=== PATIENT | female | born 1940 | race Caucasian/White ===

== ENCOUNTER 2020-12-04 17:15 | Emergency (ER) | payer MEDICARE, OTHER, SELFPAY ==
--- NOTE | ~2020-12-04 | CT_ITS ---
EXAMINATION: CT HEAD WITHOUT CONTRAST CT FACIAL BONES WITHOUT CONTRAST CT CERVICAL SPINE WITHOUT CONTRAST CLINICAL INFORMATION: Fall COMPARISON: None. TECHNIQUE: Multidetector CT imaging of the head, face and cervical spine was performed without the use of intravenous contrast. Multiplanar reformats are reviewed. This CT examination was performed using dose optimization techniques as appropriate, variously including the following: *Automated exposure control *Adjustment of mA and/or kV according to patient size (this includes techniques or standardized protocols for targeted exams where dose is matched to indication/reason for exam; i.e. extremities or head) *Use of iterative reconstruction technique DLP: 1221 mGy-cm. FINDINGS: There is no evidence of acute intracranial hemorrhage or territorial infarction. No abnormal mass-effect or midline shift is seen. Madden to white matter differentiation is well preserved. Mild patchy subcortical and periventricular white matter low-attenuation changes statistically related to microangiopathic gliosis.. No extra-axial fluid collections are identified. The ventricles are normal in size. There is no abnormal attenuation within the brain parenchyma. There is soft tissue swelling along the right lateral orbital rim and along the right zygomatic process. Orbits and globes unremarkable. No facial bone fractures. Paranasal sinuses are clear. Mild leftward deviation of the osseous nasal septum. Mastoid air cells are clear. Mandible and temporomandibular joints unremarkable. Calvarium and skull base intact. Atlantooccipital alignment is maintained. There is cervical kyphosis related to hypertrophic facet arthropathy which is most pronounced from C2 to C5, particularly on the right. There is slight anterolisthesis of C4 on C5 of approximately 3 mm. Mild levoconvex cervical curvature.. No acute fracture or subluxation. Vertebral body heights are maintained. Carotid bulb calcifications are present. The paraspinal soft tissues are otherwise unremarkable. The imaged lung apices are clear CT/CT cervical spine wo con IMPRESSION: No acute intracranial pathology. Mild chronic white matter small vessel ischemic changes. No facial bone fracture. No cervical spine fracture or subluxation. Spondylitic changes as described.
[2020-12-04 17:24] VITALS: BP 194/95; PULSE 68; RESP 16; TEMP 36.7; O2SAT 99
--- NOTE | 2020-12-04 18:33 | ED_ITS ---
HPI - Fall General Chief Complaint: Fall Stated Complaint: FALL Time Seen by Provider: 12/04/20 17:55 Source: patient Mode of arrival: ambulatory Limitations: no limitations History of Present Illness HPI Narrative: 80-year-old female with a past medical history of hypertension presenting to the ED with complaints of a mechanical fall at approximately 11:30 this morning when she was doing gardening work she tripped on her water hose got caught on her foot and she fell down hitting the cement patio with her right forehead/right upper eyelid and since then has been having pain to that area/bruising and she sustained a laceration. She reports she is up-to-date on her tetanus. Denies any symptoms prior to the fall. Denies any other symptoms at this time including dizziness, lightheadedness, changes in vision, headaches, nausea/vomiting, chest pain, shortness of breath, palpitations, cough, dyspnea on exertion, or orthopnea, any symptoms or any other symptoms complaints or concerns at this time. - patient is hypertensive at 194/95 although denies any cardiac related complaints. Reports that is related to being here in the emergency department she hates coming to the hospitals. Will re-evaluate before discharge. MD complaint: fall Onset (ago): hour(s) Fall from: standing Fall witnessed: no Place fall occurred: home (While outside) Loss of consciousness: none Prolonged down time: no Symptoms prior to fall: none Context: tripped/slipped Location of injury: head and face Severity: moderate Quality: aching Associated symptoms (after fall): denies Related Data Previous Rx's Medication Instructions Recorded tramadol 50 mg PO BID PRN #14 tab 12/04/20 Allergies Allergy/AdvReac Type Severity Reaction Status Date / Time acetaminophen [From PERCOCET] Allergy Unknown NAUSEA Verified 12/04/20 17:32 VOMITING aspirin [From PERCODAN] Allergy Unknown NAUSEA Verified 12/04/20 17:32 VOMITING oxycodone [From PERCODAN] Allergy Unknown NAUSEA Verified 12/04/20 17:32 VOMITING Review of Systems Review of Systems: Constitutional : No changes in activity, No lethargy, No recent prior head injury, No agitation, No increased fussiness ENT/Mouth : No Ear Pain, No Nasal discharge/drainage Eyes: No Eye Pain, No Swelling, No Redness, No Foreign Body, No Vision Changes Cardiovascular : No Chest Pain, No SOB Respiratory : No Cough Gastrointestinal : No Nausea, No Vomiting, No abdominal Pain Genitourinary : No Dysuria, No Urinary Frequency, No Urinary Incontinence, No Urgency, No Flank Pain Musculoskeletal : + Right upper eyelid pain/swelling/bruising, No joint pain, No neck pain/stiffness, No back pain/injury Skin : No lacerations Neuro : No unsteady gait, No Paresthesias, No Loss of Consciousness, No altered mental status, No Headache Yes all other systems are reviewed and are negative [facility] Past Medical History Attestation statement: The following information was validated with the patient. Medical History HTN (hypertension) Social History Social History Alcohol intake: current Alcohol intake frequency: a few times a month Alcohol type: beer and wine Smoked in Last 30 Days: No Use of substances other than those prescribed or required for medical reasons: No Advance Directives: Yes Advance Directives Information Provided: No Advance Directives on File: No Physical Exam Vital Signs: Vital Signs: Last Vital Signs Temp 98.1 F 12/04/20 17:24 Pulse 63 12/04/20 19:28 Resp 16 12/04/20 19:28 BP 184/98 H 12/04/20 19:28 Pulse Ox 99 12/04/20 19:28 Body Mass Index 30.0 Vital signs have been reviewed as normal and appeared to be correct. Blood pressure hypertensive at 194/95. Heart rate normal. Respiration rate normal. Temperature normal. Oxygen saturation normal. Appearance: Alert. Oriented X3. No acute distress. Head: Right upper eyebrow with moderate ecchymosis and soft tissue swelling noted with a superficial 1 cm laceration noted. No foreign bodies noted. Mild bony tenderness noted. No obvious deformities noted. Otherwise the rest of the external exam of the head is normal. Able to rotate head bilaterally. Eyes: PERRLA. EOMI. No nystagmus noted. Conjunctiva and sclera normal. Eyelids normal. Corneal reflex normal. ENT: EAC normal. TM's Normal. No septal hematoma noted. No hemotympanum noted. Hearing normal. Pharynx normal. Uvula midline. tongue midline. Moist mucous membranes. No trismus noted. No drooling noted. No muffled voice noted. No nystagmus noted. Neck: Normal inspection. Neck supple. FROM. No adenopathy. Trachea midline. Thyroid Normal. No meningeal signs. No neck mass noted. No mid cervical or paracervical muscular tenderness noted. No rashes/lesion/induration/ fluctuance/ecchymosis/abrasion/lacerations or signs of infection noted. CVS: Normal heart rate and rhythm. Heart sound normal. No murmurs noted. Pulses normal throughout. Respiratory: No respiratory distress. Painless inspiration. Breath sounds normal. No wheezes/rales/rhonchi noted. Chest nontender. No accessory muscle usage noted or decreased air movement noted. Back: Full range of motion noted. Skin: Skin warm and dry. Normal skin color. Normal skin turgor. No rashes/lesions noted. Extremities: No lower extremity edema. Extremities exhibit normal range of motion. Extremities nontender. Able to shrug shoulders bilaterally and keep up against resistance. Neuro: Oriented X 3. No motor deficit. No sensory deficit. Reflexes normal. Moving all extremities. No focal motor deficits. Cranial nerves II-XI intact bilaterally. Facial strength normal. Normal cognition. Speech normal. Gait normal. Strength 5/5 throughout. No pronator drift. No tremor noted. No fasciculations noted. No rigidity noted. Muscle tone normal throughout. No asterixis noted. Course Course Course Narrative: 18:01pm - 80-year-old female with a past medical history of hypertension presenting to the ED with complaints of a mechanical fall at approximately 11:30 this morning when she was doing gardening work she tripped on her water hose got caught on her foot and she fell down hitting the cement patio with her right forehead/right upper eyelid and since then has been having pain to that area/bruising and she sustained a laceration. - on exam patient is alert and oriented x3. Not in any acute distress. Hypertensive at 194/95 all other vitals are within normal limits. No focal neuro deficits noted. Patient with soft tissue swelling/ecchymosis and a superficial 1 cm laceration to right upper eyebrow no obvious deformities noted. Neck is nontender and patient has full range of motion. No other signs of trauma noted. - will obtain a CT scan of brain/facial bones and CT scan of cervical spine then re-evaluate. Patient declined any pain medications at this time. Reevaluation(s) Reevaluation #1: - CT scan of brain/cervical/facial bones within normal limits revealed chronic changes no acute processes. Patient is now status post laceration repair with Dermabond. Patient tolerated procedure well. She is up-to-date on tetanus. No further imaging or labs indicated at this time blood pressure mildly increased at this time. Will DC home with symptomatic treatment instructions return if any new or worsening symptoms to follow up with primary care provider. Patient understands agrees with this plan. Time: 20:11 [facility] - Fall Medical Records Attestation: I reviewed the patient's medical records. Lab Data Attestation: I reviewed the patient's lab results. Imaging Data CT scan of brain/facial bones/cervical spine: Attestation: I personally reviewed and interpreted this imaging study as follows: Radiologist's impression: FINDINGS: There is no evidence of acute intracranial hemorrhage or territorial infarction. No abnormal mass-effect or midline shift is seen. Madden to white matter differentiation is well preserved. Mild patchy subcortical and periventricular white matter low-attenuation changes statistically related to microangiopathic gliosis.. No extra-axial fluid collections are identified. The ventricles are normal in size. There is no abnormal attenuation within the brain parenchyma. There is soft tissue swelling along the right lateral orbital rim and along the right zygomatic process. Orbits and globes unremarkable. No facial bone fractures. Paranasal sinuses are clear. Mild leftward deviation of the osseous nasal septum. Mastoid air cells are clear. Mandible and temporomandibular joints unremarkable. Calvarium and skull base intact. Atlantooccipital alignment is maintained. There is cervical kyphosis related to hypertrophic facet arthropathy which is most pronounced from C2 to C5, particularly on the right. There is slight anterolisthesis of C4 on C5 of approximately 3 mm. Mild levoconvex cervical curvature.. No acute fracture or subluxation. Vertebral body heights are maintained. Carotid bulb calcifications are present. The paraspinal soft tissues are otherwise unremarkable. The imaged lung apices are clear CT/CT cervical spine wo con IMPRESSION: No acute intracranial pathology. Mild chronic white matter small vessel ischemic changes. No facial bone fracture. No cervical spine fracture or subluxation. Spondylitic changes as described. Discharge Plan Discharge Clinical Impression: Fall, Laceration Patient Disposition: Home, Self-Care Instructions: Facial Laceration (ED) Prescriptions: New tramadol 50 mg tablet 50 mg PO BID PRN (Reason: pain) Qty: 14 RF: 0 Referrals: Shyla Fleming NP [Primary Care Provider] - 2 days Print Language: Greenlandic
[2020-12-04 19:28] VITALS: BP 184/98; PULSE 63; RESP 16; O2SAT 99
== END 2020-12-04 20:26 | disposition home or self-care (01) ==
PROVIDERS: Emergency Provider Internal Medicine; PCP Nurse Practitioner Family
DX: S01.81XA Laceration without foreign body of other part of head, initial encounter (principal); G44.309 Post-traumatic headache, unspecified, not intractable; M54.2 Cervicalgia; W01.10XA Fall on same level from slipping, tripping and stumbling with subsequent striking against unspecified object, initial encounter; Y93.H2 Activity, gardening and landscaping; Y92.007 Garden or yard of unspecified non-institutional (private) residence as the place of occurrence of the external cause; Y99.8 Other external cause status; Z79.899 Other long term (current) drug therapy
CPT/HCPCS: 70450; 70486; 72125; 99285

== ENCOUNTER 2021-05-17 09:41 | Outpatient (REF) | payer MEDICARE, OTHER, SELFPAY ==
--- NOTE | ~2021-05-17 | MM_ITS ---
EXAMINATION: MM SCREENING DIGITAL BREAST TOMOSYNTHESIS, BILATERAL CLINICAL INFORMATION: Screening. Asymptomatic. The lifetime risk of breast cancer based on the Tyrer-Cuzick Model is 2%. COMPARISON: Mammography: 05/11/2020, 01/20/2019, 12/17/2017 TECHNIQUE: Digital breast tomosynthesis is performed in both the craniocaudal and mediolateral oblique views along with computer-aided detection (CAD). Synthesized 2D images are generated from the tomosynthesis. FINDINGS: There are scattered areas of fibroglandular density (ACR BI-RADS breast composition Category b). There are no significant masses, abnormal calcifications, or other abnormalities. Parenchymal pattern is similar to prior studies. No developing density. The axilla and skin contours are unremarkable. MM/MM tomosynthesis screening BI IMPRESSION: No mammographic evidence of malignancy. ASSESSMENT: BI-RADS 2: Benign RECOMMENDATION: Routine annual mammography screening. This patient's information was entered into a reminder system with a target due date for their next mammogram.
== END 2021-05-17 09:42 | disposition home or self-care (01) ==
LOC: HO.MAMMO 09:41
PROVIDERS: PCP Nurse Practitioner Family; Visit Provider Nurse Practitioner Family
DX: Z12.31 Encounter for screening mammogram for malignant neoplasm of breast (principal)
CPT/HCPCS: 77063; 77067

== ENCOUNTER 2021-05-26 08:53 | Outpatient (REF) | payer MEDICARE, OTHER, SELFPAY ==
--- NOTE | ~2021-05-26 | MM_ITS ---
EXAMINATION: BONE DENSITOMETRY CLINICAL INDICATION: Screening for osteoporosis. COMPARISON: Previous BD dated 06/22/2011 and baseline BD dated 10/06/2005. TECHNIQUE: Using a App[employer]ense DXA System (software version: 13.1) manufactured by [employer], dual-energy x-ray absorptiometry was performed of the lumbar spine and left hip. The images are of good technical quality. Summary results are attached. FINDINGS: AP SPINE L1-L4 (excluding L2): The data of L1-L4 has been changed to exclude the L2 vertebral body, because degenerative changes at this level may cause overestimation of lumbar spine density. Current: BMD 1.415 g/cm2, Z-score 3.5, T-score 2.0, normal, 3.4% increase from previous, 24.0% increase from baseline (<5% change is not significant). Prior: BMD 1.368 g/cm2. Baseline: BMD 1.141 g/cm2. LEFT FEMUR, NECK: Current: BMD 0.958 g/cm2, Z-score 1.3, T-score -0.6, normal. Prior: BMD 0.964 g/cm2. Baseline: BMD 0.949 g/cm2. LEFT FEMUR, TOTAL: Current: BMD 0.945 g/cm2, Z-score 1.2, T-score -0.5, normal, 0.4% decrease from previous, 2.6% increase from baseline (<5% change is not significant). Prior: BMD 0.949 g/cm2. Baseline: BMD 0.921 g/cm2. IDENTIFIED RISK FACTORS: Height loss, menopause. HISTORY OF FRACTURE: None listed. MEDICATIONS: Calcium supplements or multivitamin, vitamin D. MM/XR DEXA axial skeleton IMPRESSION: 1. DIAGNOSIS: Normal bone density based on the lowest T-score value of -0.6 in the femoral neck applying World Health Organization criteria. 2. 10-YEAR FRACTURE RISK PREDICTION, FRAX: Major osteoporotic fracture (clinical spine, forearm, hip or shoulder) 9.6%. Hip fracture 1.4%. 3. Treatment Recommendations: NOF guidelines recommend consideration for treatment in postmenopausal women and men age 50 and older presenting with the following: -A hip or vertebral (clinical or morphometric) fracture. -T-score less than or equal to -2.5 at the femoral neck or spine after appropriate evaluation to exclude secondary causes. -Low bone mass at the hip or spine and a 10-year fracture probability by FRAX of greater than or equal to 3% for hip fracture or greater than or equal to 20% for major osteoporotic fracture based on the [place] adapted WHO algorithm. 4. Other Recommendations: All treatment decisions require clinical judgment and consideration of individual patient factors, including patient preferences, comorbidities, previous drug use, risk factors not captured in the FRAX model (e.g. frailty, falls, vitamin D deficiency, increased bone turnover, interval significant decline in bone density) and possible under or overestimation of fracture risk by FRAX. FUTURE SCAN RECOMMENDATION: People with diagnosed cases of osteoporosis or at high risk for fracture should have regular bone mineral density tests. For patients eligible for Medicare, routine testing is allowed once every 2 years. The testing frequency can be increased to one year for patients who have rapidly progressing disease, those who are receiving or discontinuing medical therapy to restore bone mass, or have additional risk factors.
== END 2021-05-26 08:54 | disposition home or self-care (01) ==
LOC: HO.MAMMO 08:53
PROVIDERS: Visit Provider Nurse Practitioner Family
DX: Z13.820 Encounter for screening for osteoporosis (principal); M85.80 Other specified disorders of bone density and structure, unspecified site; Z78.0 Asymptomatic menopausal state; Z79.899 Other long term (current) drug therapy
CPT/HCPCS: 77080

== ENCOUNTER 2022-06-13 08:34 | Outpatient (REF) | payer MEDICARE, OTHER, SELFPAY ==
--- NOTE | ~2022-06-13 | MM_ITS ---
EXAMINATION: MM SCREENING DIGITAL BREAST TOMOSYNTHESIS, BILATERAL CLINICAL INFORMATION: Screening. Asymptomatic. The lifetime risk of breast cancer based on the Tyrer-Cuzick Model is 2%. COMPARISON: Mammography: 05/17/2021, 05/11/2020, 01/20/2019 TECHNIQUE: Digital breast tomosynthesis is performed in both the craniocaudal and mediolateral oblique views along with computer-aided detection (CAD). Synthesized 2D images are generated from the tomosynthesis. Additional right CC view is provided. FINDINGS: There are scattered areas of fibroglandular density (ACR BI-RADS breast composition Category b). Parenchymal pattern is similar to prior exams. There is fibronodular parenchymal pattern without significant mass or architectural abnormality or developing density. No abnormal calcifications. The axilla and skin contours are unremarkable. No significant changes. MM/MM tomosynthesis screening BI IMPRESSION: No mammographic evidence of malignancy. ASSESSMENT: BI-RADS 2: Benign RECOMMENDATION: Routine annual mammography screening. This patient's information was entered into a reminder system with a target due date for their next mammogram.
== END 2022-06-13 08:35 | disposition home or self-care (01) ==
LOC: HO.MAMMO 08:34
PROVIDERS: Visit Provider Nurse Practitioner Family
DX: Z12.31 Encounter for screening mammogram for malignant neoplasm of breast (principal)
CPT/HCPCS: 77063; 77067

== ENCOUNTER 2023-06-20 08:00 | Outpatient (REF) | payer MEDICARE, OTHER, SELFPAY | END 2023-06-20 08:01 | disposition home or self-care (01) | LOC: HO.MAMMO 08:00 | PROVIDERS: PCP Nurse Practitioner Family; Visit Provider Nurse Practitioner Family | DX: Z12.31 Encounter for screening mammogram for malignant neoplasm of breast (principal) | CPT/HCPCS: 77063; 77067 ==

== ENCOUNTER → 2023-06-20 08:15 | Outpatient (BNV) | payer MEDICARE, OTHER, SELFPAY | PROVIDERS: PCP Nurse Practitioner Family; Visit Provider Radiology Diagnostic Radiology | DX: Z12.31 Encounter for screening mammogram for malignant neoplasm of breast (principal) | CPT/HCPCS: 77063; 77067 ==

== ENCOUNTER 2023-12-27 12:47 | Outpatient (REF) | payer MEDICARE, OTHER, SELFPAY ==
[2023-12-27 14:36] LABS: Alanine Aminotransferase 19 U/L (0-31); Albumin Level 3.9 g/dL (3.5-5.0); Alkaline Phosphatase 89 U/L (39-117); Anion Gap 11 (12-20); Aspartate Amino Transferase 20 U/L (5-31); Bilirubin Total 0.5 mg/dL (0.0-1.0); Blood Urea Nitrogen 26 mg/dL (9-16); Calcium 9.3 mg/dL (8.4-10.2); Carbon Dioxide 28 mmol/L (22-29); Chloride 104 mmol/L (96-108); Estimated Glomerular Filt Rate > 60; Glucose Random 90 mg/dL (60-115); Potassium 3.6 mmol/L (3.3-5.1); Sodium 139 mmol/L (135-145); Total Protein 7.2 g/dL (6.5-8.0)
== END 2023-12-27 12:48 | disposition home or self-care (01) ==
LOC: HO.LAB 12:47
PROVIDERS: PCP Registered Nurse; Visit Provider Registered Nurse
DX: I10 Essential (primary) hypertension (principal)
CPT/HCPCS: 36415; 80053

== ENCOUNTER 2024-01-21 11:40 | Day surgery (SDC) | payer MEDICARE, OTHER, SELFPAY ==
[2024-01-17 12:04] VITALS: BMI 31.4
--- NOTE | 2024-01-17 14:55 | HO.ANESPROP2 ---
Documented by User: Phylicia Begum NP 01/17/24 14:56 HPI - Anesthesia Eval Consult details Narrative: 83yo F for Right Levator Resect/Recess PMFSH Active Problems Active Problems: All Active Problems HTN (hypertension) (Acute) Past Medical History Medical History (Updated 01/17/24 @ 11:58 by Maira Barney RN) Osteoarthritis Osteopenia Anxiety HTN (hypertension) Social History Social History Alcohol intake: current Alcohol intake frequency: a few times a month Alcohol type: beer and wine Are you DNR?: No Advance Directives: No Advance Directives Information Provided: Yes Advance Directives on File: No Patient : No : No Meds Allergies Allergy/AdvReac Type Severity Reaction Status Date / Time acetaminophen [From PERCOCET] Allergy Unknown NAUSEA Verified 12/04/20 17:32 VOMITING aspirin [From PERCODAN] Allergy Unknown NAUSEA Verified 12/04/20 17:32 VOMITING oxycodone [From PERCODAN] Allergy Unknown NAUSEA Verified 12/04/20 17:32 VOMITING Home Medications ?Medication ?Instructions ?Recorded ?Confirmed ?Last Taken ?Type albuterol sulfate 90 mcg/actuation 2 puff inhalation Q6H PRN 01/17/24 01/17/24 Unknown History aerosol inhaler Shortness Of Breath Or Wheezing calcium carbonate 500 mg-vitamin 1 tab PO DAILY 01/17/24 01/17/24 Unknown History D3 10 mcg (400 unit) tablet clotrimazole-betamethasone 1 1 appl topical BID 01/17/24 01/17/24 Unknown History %-0.05 % topical cream escitalopram oxalate 10 mg tablet 10 mg PO DAILY 01/17/24 01/17/24 Unknown History oxvbeatqube-icbsbgzti-uzr C-Mn 500 2 cap PO DAILY 01/17/24 01/17/24 Unknown History mg-400 mg capsule (Glucosamine Chondroitin Maximum Strength) hydrochlorothiazide 25 mg tablet 12.5 mg PO DAILY 01/17/24 01/17/24 Unknown History losartan 25 mg tablet 25 mg PO DAILY 01/17/24 01/17/24 Unknown History turmeric root extract 500 mg 1,000 mg PO BID 01/17/24 01/17/24 Unknown History capsule Exam Height,Weight and Vital Signs: Height 5 ft 1 in Weight 75.296 kg Assessment and Plan Assessment Anesthesia Assessment: Chart Reviewed Documented by User: Rohit Bhardwaj MD 01/21/24 14:41 PMFSH Past Medical History Medical History (Updated 01/17/24 @ 11:58 by Maira Barney RN) Osteoarthritis Osteopenia Anxiety HTN (hypertension) Family History Family history of problems with anesthesia: No Surgical History History of Problems with Anesthesia: No Social History Social History Alcohol intake: current Alcohol intake frequency: a few times a month Alcohol type: beer and wine Are you DNR?: No Advance Directives: No Advance Directives Information Provided: Yes Advance Directives on File: No Patient : No : No Meds Allergies Allergy/AdvReac Type Severity Reaction Status Date / Time acetaminophen [From PERCOCET] Allergy Unknown NAUSEA Verified 12/04/20 17:32 VOMITING aspirin [From PERCODAN] Allergy Unknown NAUSEA Verified 12/04/20 17:32 VOMITING oxycodone [From PERCODAN] Allergy Unknown NAUSEA Verified 12/04/20 17:32 VOMITING Home Medications ?Medication ?Instructions ?Recorded ?Confirmed ?Last Taken ?Type albuterol sulfate 90 mcg/actuation 2 puff inhalation Q6H PRN 01/17/24 01/17/24 Unknown History aerosol inhaler Shortness Of Breath Or Wheezing calcium carbonate 500 mg-vitamin 1 tab PO DAILY 01/17/24 01/17/24 Unknown History D3 10 mcg (400 unit) tablet clotrimazole-betamethasone 1 1 appl topical BID 01/17/24 01/17/24 Unknown History %-0.05 % topical cream escitalopram oxalate 10 mg tablet 10 mg PO DAILY 01/17/24 01/17/24 Unknown History lzicuegbffn-gtylbtjfz-keo C-Mn 500 2 cap PO DAILY 01/17/24 01/17/24 Unknown History mg-400 mg capsule (Glucosamine Chondroitin Maximum Strength) hydrochlorothiazide 25 mg tablet 12.5 mg PO DAILY 01/17/24 01/17/24 Unknown History losartan 25 mg tablet 25 mg PO DAILY 01/17/24 01/17/24 Unknown History turmeric root extract 500 mg 1,000 mg PO BID 01/17/24 01/17/24 Unknown History capsule Exam Airway Mallampati Class: III TM Dist: <=3cm Neck ROM: Full Loose/Missing/Broken Teeth: Yes Heart: rrr Lungs: cta Assessment and Plan Assessment Anesthesia Assessment: Anesthesia Plan Discussed Final Anesthetic Review Family History of Problems with Anesthesia: No History of Problems with Anesthesia: No NPO: Yes ASA Class: III Final Preanesthetic Review: No Changes in Pt Med Stat, Meds/Allgs Chart Reviewed, Consent Obtained/Reviewed and Anes Risks/Benef Reviewed Patient Risk: Intermediate Procedure Risk: Low Anesthetic Plan Anesthetic Plan: MAC: Disposition: Standard PACU
[2024-01-21 14:21] VITALS: BP 151/85; PULSE 71; RESP 18; TEMP 36.1; O2SAT 97
--- NOTE | 2024-01-21 15:38 | MHC.SHP ---
Pre-Procedural Eval Section A - 24 Hr Update-Section A only Date of Service: 01/21/24 The patient is an INPATIENT: No Changes since office visit: No Cold of Flu in the past 2 weeks, No New Medical Problems, No Changes in Medication and No Patient answered all questions The patient has been examined within 24 hours of the surgical procedure. The History & Physical has been completed within 30 days and I have reviewed it.: Yes Section B - Complete if H&P > 30 days Chief Complaint: Unspecified ptosis of right eyelid Allergies: Allergies Allergy/AdvReac Type Severity Reaction Status Date / Time acetaminophen [From PERCOCET] Allergy Unknown NAUSEA Verified 12/04/20 17:32 VOMITING aspirin [From PERCODAN] Allergy Unknown NAUSEA Verified 12/04/20 17:32 VOMITING oxycodone [From PERCODAN] Allergy Unknown NAUSEA Verified 12/04/20 17:32 VOMITING Plan Diagnosis/Plan: Unchanged I have reviewed the history and physical and performed a pertinent physical examination on my patient. No changes have occurred unless specified. Time Spent With Patient Time: Total time managing care of this patient today ____ minutes.
[2024-01-21] MEDS: Scopolamine 1.5 MG PATCH.TD.3 TRANSDERMA (15:52)
[2024-01-21 16:36] VITALS: BP 158/79; PULSE 65; RESP 12; TEMP 36.6; O2SAT 98
[2024-01-21 16:51] VITALS: BP 162/74; PULSE 64; RESP 20; TEMP 36.5; O2SAT 98
--- NOTE | 2024-03-24 15:26 | OP_ITS ---
DATE OF SERVICE: 01/21/2024 SURGEON: Castillo Macdonald MD PREOPERATIVE DIAGNOSIS: Patient was seen for right upper lid ptosis. POSTOPERATIVE DIAGNOSIS: Patient was seen for right upper lid ptosis. PROCEDURE PERFORMED: Levator resection. ESTIMATED BLOOD LOSS: COMPLICATIONS: ANESTHESIA: MAC. ASSISTANTS: SPECIMENS: DESCRIPTION OF PROCEDURE: After obtaining informed consent, the patient was brought to the operating suite and placed in the supine position. After being prepped and draped in usual sterile fashion, attention was directed to the right upper lid crease where injection of lidocaine was placed. This was followed by creation of a skin incision with a length equal to the diameter of the cornea. The wound was opened, a combination of sharp and blunt dissection inferiorly to the tarsus where a double-armed [place]-R[place]ard suture was placed partial thickness through the tarsal bed coming out at the superior margin of the tarsus. Mark scissors was then utilized with sharp and blunt dissection creating a pocket along the superior incision. The [place]ard double-armed was then passed through the levator was sutured in place. The height of the lid was checked, and once found adequate, it was sutured in place. The skin was then closed with 6-0 fast absorbing and erythromycin was placed on the wound. The patient tolerated the procedure well and will be seen in followup. MD REBEKA Ames/MODL / [id number] MTDD
== END 2024-01-21 16:52 | disposition home or self-care (01) ==
PROVIDERS: PCP Registered Nurse; Visit Provider Ophthalmology
PROC: (CPT 67911; principal; 2024-01-21 13:50)
DX: H02.401 Unspecified ptosis of right eyelid (principal); I10 Essential (primary) hypertension; F41.9 Anxiety disorder, unspecified; Z79.899 Other long term (current) drug therapy; Z88.5 Allergy status to narcotic agent; Z88.8 Allergy status to other drugs, medicaments and biological substances
CPT/HCPCS: 67911; J2250; J2405; J3010

== ENCOUNTER 2024-06-25 08:02 | Outpatient (REF) | payer MEDICARE, OTHER, SELFPAY ==
--- NOTE | ~2024-06-25 | MM_ITS ---
EXAMINATION: MM SCREENING DIGITAL BREAST TOMOSYNTHESIS, BILATERAL CLINICAL INFORMATION: Screening. Asymptomatic. COMPARISON: Mammography: Comparison is made with available priors TECHNIQUE: Digital breast mammography with tomosynthesis is performed in both the craniocaudal and mediolateral oblique views along with computer-aided detection (CAD). FINDINGS: There are scattered areas of fibroglandular density (ACR BI-RADS breast composition Category b). There are no significant masses, abnormal calcifications, or other abnormalities. MM/MM tomosynthesis screening BI IMPRESSION: No mammographic evidence of malignancy. ASSESSMENT: BI-RADS BI-RADS 1 - Negative RECOMMENDATION: Routine annual mammography screening. 1 year F/U This examination should not preclude the clinical evaluation of a suspicious palpable abnormality. This patient's information was entered into a reminder system with a target due date for their next mammogram. Electronically signed by: Earlene Perez DO 07/07/2024 05:57 PM EDT
== END 2024-06-25 08:03 | disposition home or self-care (01) ==
LOC: HO.MAMMO 08:02
PROVIDERS: PCP Registered Nurse; Visit Provider Registered Nurse
DX: Z12.31 Encounter for screening mammogram for malignant neoplasm of breast (principal)
CPT/HCPCS: 77063; 77067

== ENCOUNTER → 2024-06-25 08:15 | Outpatient (BNV) | payer MEDICARE, OTHER, SELFPAY | PROVIDERS: PCP Registered Nurse; Visit Provider Internal Medicine | DX: Z12.31 Encounter for screening mammogram for malignant neoplasm of breast (principal) | CPT/HCPCS: 77063; 77067 ==

== ENCOUNTER 2024-07-07 08:04 | Outpatient (REF) | payer MEDICARE, OTHER, SELFPAY ==
[2024-07-07 09:25] LABS: Cholesterol 238 mg/dL (<200); HDL Cholesterol 93 mg/dL (>40); LDL Cholesterol Calculated 135 mg/dL (<100); Triglycerides 50 mg/dL (<150)
== END 2024-07-07 08:05 | disposition home or self-care (01) ==
LOC: HO.LAB 08:04
PROVIDERS: PCP Registered Nurse; Visit Provider Registered Nurse
DX: I10 Essential (primary) hypertension (principal)
CPT/HCPCS: 36415; 80061

== ENCOUNTER 2025-03-13 09:46 | Outpatient (REF) | payer MEDICARE, OTHER, SELFPAY ==
--- NOTE | ~2025-03-13 | MM_ITS ---
EXAMINATION: DXA BONE DENSITY AXIAL HISTORY: Osteopenia of lumbar spine TECHNIQUE: Corvalius Dual energy absorptiometry (DEXA) of the lumbar spine, total left hip, and femoral neck was performed. COMPARISON: Comparison is made with the prior examination dated 05/26/2021. FINDINGS: The bone mineral density of the lumbar spine is 1.429, corresponding to a T-score of 2.2, and a Z-score of 3.7. This is indicative of normal bone mineral density. This represents a BMD change of 1.0% compared to the prior exam. This is not statistically significant. The bone mineral density of the left total hip is 0.937, corresponding to a T-score of -0.6, and a Z-score of 1.3. This is indicative of normal bone mineral density. This represents a BMD change of -0.8% compared to the prior exam. This is not statistically significant. The bone mineral density of the left femoral neck is 0.969, corresponding to a T-score of -0.5, and a Z-score of 1.6. This is indicative of normal bone mineral density. This represents a BMD change of 1.1% compared to the prior exam. FRACTURE RISK: The FRAX index suggests a ten year probability of major osteoporotic fracture of 9.6%, and of hip fracture 1.7%. MM/XR DEXA axial skeleton IMPRESSION: Based on bone mineral density, and according to World Health Organization (WHO) criteria, the diagnosis is consistent with normal bone mineral density. All bone density values are in grams per centimeter squared (g/cm2). Statistically, 68% of repeat scans fall within 1 SD (+/- 0.010 g/cm2 for AP spine L1-L4) and 1 SD (+/- 0.012 g/cm2 for femur total) FRAX is a trademark of the [employer] [place] for Metabolic Bone Disease, a World Health Organization (WHO) Collaborating Center. Electronically signed by: Bg Limon MD 03/13/2025 10:29 AM EDT
--- OUTSIDE RECORDS SUMMARY | 2025-03-13 10:17 | XMS_ITS | Patient Health Record ---
[facility] [address] [place] [address] Care Team Providers Care Manager Nuclear Name Role Phone Bernadette BLANDON, Shyla Primary Care Provider Bg Santos [phone] Allergies Allergen (clinical drug ingredient) Drug/Non Drug Allergy documented on EMR Reaction Allergy Type Onset Date Status Percodan Unknown Drug Allergy Active acetaminophen / oxycodone Percocet Unknown Drug Allergy Active Reason For Referral No Information Medications Medication SIG (Take, Route, Frequency, Duration) Notes Start Date End Date Status hydroCHLOROthiazide Active Sertraline HCl Activ e Glucosamine Active Multivitamin Active Calcium Active Aspir-81 Active Colyte with Flavor Packs 227 .1 GM As directed Orally As directed for 1 dose 06/18/2013 Active Problems Problem Type SNOMED Code ICD Code Onset Dates Problem Status W/U Status Risk Notes Problem Already on aspirin (610502517) Long-term (current) use of aspirin (V58.66) Active confirmed Problem Colon cancer screening (V76.51) Active confirmed Plan Of Treatment Future Test Test Name Order Date COLONOSCOPY 06/18/2013 Insurance Providers Payer Name Payer Address Payer Phone Subscriber Number Group Number Insured Name Patient Relationship to Insured Coverage Start Date Coverage End Date MEDICARE OF [place] [address] [place] [address] [id number] ANNE MARIE TINAJERO Self - patient is the insured [facility] [address] [place] [id number] ANNE MARIE TINAJERO Self - patient is the insured Medical (General) History Medical History History ICD Code Depression in relation to husnand's illn ess and HTN Denies MA,DM,CVA,Lung disease,renal dise ase Transient elevation of the L FT's in 2008 with a neg. w/u--felt to be due to fatty liver--resolved, and she reports that F/U liver tests have been OK with her PCP Colonoscopy in 01/2003 with h yperplastic polyps, diverticulosis and int. hemorrhoids Surgical History Surgery Date(Month/Year) benign breast biopsy [facility] Cataract surgery planned for June, 13
== END 2025-03-13 09:47 | disposition home or self-care (01) ==
LOC: HO.MAMMO 09:46
PROVIDERS: Visit Provider Registered Nurse
DX: Z13.820 Encounter for screening for osteoporosis (principal); M85.88 Other specified disorders of bone density and structure, other site
CPT/HCPCS: 77080

== ENCOUNTER → 2025-03-13 10:00 | Outpatient (BNV) | payer MEDICARE, OTHER, SELFPAY | PROVIDERS: Visit Provider Radiology Diagnostic Radiology | DX: E28.39 Other primary ovarian failure (principal) | CPT/HCPCS: 77080 ==

== ENCOUNTER 2025-07-07 07:45 | Outpatient (REF) | payer MEDICARE, OTHER, SELFPAY ==
--- OUTSIDE RECORDS SUMMARY | 2025-07-06 11:00 | XMS_ITS | Encounter Summary ---
Author Organization [facility] Address [address] [place] [address] Phone Care Team Providers Care Chrome Tanning Drum Operator Name Role Phone Arturo Duncan CNP Primary Care Provider [phone] Arturo Duncan SURVEILLANCE SENSOR OPERATOR Unavailable [phone] Encounter Details Date Type Department Care Team (Late st Contact Info) Description 07/06/2025 11:00 AM EDT Office Visit [address] [address] Arturo Duncan, SURVEILLANCE SENSOR OPERATOR [address] [place] [phone] [email or web address] Essential hypertension (Primary Dx); Chronic pain of both knees; Elevated alkaline phosphatase level Social History Tobacco Use Types Packs/Day Years Used Date Smoking Tobacco: Never Passive Smoke Exposure: Never Smokeless Tobacco: Never Tobacco Cessation:Counseling Given: Not Answered Alcohol Use Standard Drinks/Week Comments Yes 0 (1 standard drink = 0.6 oz pur e alcohol) maybe 5 x year Education Answer Date Recorded Are you interested in more education? Not on silva e 01/12/2023 Are you concerned about learning? Not on file 01/12/2023 No 01/12/2023 No 01/12/2023 Digital Access Answer Date Recorded No 02/10/2023 No 02/10/2023 Reliable internet access at home? Not on file 02/10/2023 Device with a working camera? Not on file Intimate Partner Violence Answer Date R ecorded Denied Basic Needs Not on file 12/16/2024 In the past 12 months have y ou been in a relationship with a person who hurts, threatens, or tries to control you? No 12/16/2024 Worried food would run out Not on file 12/16 In the past 12 months have y ou been in a relationship with a person who hurts, threatens, or tries to control you? No 12/16/2024 Comments No Sex and Gender Information Value Date Recorded Sex Assigned at Female 01/26/2022 11:00 PM EDT Legal Sex Female 10:11 PM EDT Gender Identity Female 01/26/2022 11:00 PM EDT Sexual Orientation Straight 01/26/2022 11 :00 PM EDT documented as of this encounter Last Filed Vital Signs Vital Sign Reading Time Taken Comments Blood Pressure 120/68 07/06/2025 10:46 AM EDT Pulse 70 07/06/2025 10:46 AM EDT Temperature 36.4 C (97.5 F) 07/06/2025 10:46 AM EDT Respiratory Rate - - Oxygen Saturation 98% 07/06/2025 10:46 AM EDT Inhaled Oxygen Concentration - - Weight 74.8 kg (165 lb) 07/06/2025 10:46 AM EDT Height - - Body Mass Index 30.67 12/22/2024 9:46 AM EDT documented in this encounter Progress Notes * Arturo Duncan, CORINA - 07/06/2025 11:00 AM EDT Marilyn White is a 84 y.o. female who presents for routine follow-up visit. Has been taking medications as prescribed. Labs done recently and reviewed results with patient at visit today. Knees continue to be bothersome, right more than left. Had done PT through [facility] and felt some improvement. Has recently connected with [facility] which is an online PT. Has been doing really well with exercises and also working on balance. Feels it has helped with pain. This week right knee has been slightly more bothersome but feels related to weather. Is wearing a compression brace which does help. Using Aleve once a day as needed, had also been using Tumeric but stopped and unsure why. Occasionally will use Voltaren. Is not overly interested in seeing ortho at this time, may consider in the future. Review of Systems Constitutional: Negative for fatigue and fever. Respiratory: Negative for cough and shortness of breath. Cardiovascular: Negative for chest pain and palpitations. Neurological: Negative for dizziness. Musculoskeletal: Positive for joint pain. BP 120/68 (BP Location: Right arm, Patient Position: Sitting) Pulse 70 Temp 36.4 ??C (97.5 ??F) Wt 74.8 kg (165 lb) LMP (LMP Unknown) SpO2 98% BMI 30.67 kg/m?? Body mass index is 30.67 kg/m??. Wt Readings from Last 3 Encounters: 07/06/25 74.8 kg (165 lb) 12/22/24 72.6 kg (160 lb) 06/23/24 75.3 kg (166 lb) Hospital Outpatient Visit on 06/27/2025 Component Date Value Ref Range Status 25 OH VIT D (TOTAL) 06/27/2025 48 30 - 60 ng/mL Final HDL 06/27/2025 94 mg/dL Final Comment: Interpretation <40 mg/dL: Low HDL cholesterol (major risk factor for CHD) Greater than or equal to 60 mg/dL: High HDL cholesterol ( negative risk factor for CHD) HDL - cholesterol is affected by a number of factors, e.g. smoking, excerise, hormones, sex and age. CHOLESTEROL 06/27/2025 228 0 - 240 mg/dL Final TRIGLYCERIDES 06/27/2025 56 30 - 160 mg/dL Final LDL 06/27/2025 123 50 - 129 mg/dL Final Comment: LDL levels in terms of risk for coronary heart disease: <100 mg/dL: Optimal 100-129 mg/dL: Near or above optimal 130-159 mg/dL: Borderline high 160-189 mg/dL: High >190 mg/dL: Very High CARDIAC RISK RATIO 06/27/2025 2.4 (L) 3.3 - 4.4 Final SODIUM 06/27/2025 141 133 - 146 mmol/L Final POTASSIUM 06/27/2025 4.1 3.3 - 5.1 mmol/L Final CHLORIDE 06/27/2025 105 96 - 108 mmol/L Final CO2 06/27/2025 27 21 - 35 mmol/L Final BUN 06/27/2025 18 6 - 19 mg/dL Final CREATININE 06/27/2025 0.80 0.5 - 1.5 mg/dL Final GLUCOSE 06/27/2025 87 70 - 99 mg/dL Final ALBUMIN 06/27/2025 4.1 3.9 - 4.8 g/dL Final TOTAL PROTEIN 06/27/2025 6.9 6.5 - 8.0 g/dL Final CALCIUM 06/27/2025 9.9 8.4 - 10.3 mg/dL Final ALKALINE PHOSPHATASE 06/27/2025 79 39 - 117 U/L Final TOTAL BILIRUBIN 06/27/2025 0.5 0.0 - 1.2 mg/dL Final AST 06/27/2025 18 0 - 37 U/L Final ALT 06/27/2025 13 0 - 40 U/L Final GLOBULIN 06/27/2025 2.8 1 - 4.8 g/dL Final EGFR 06/27/2025 74 >59 mL/min/1.73m2 Final Estimated glomerular filtration rate calculated using the CKD-EPI refit equation. ANION GAP 06/27/2025 13 10 - 20 mmol/L Final WBC 06/27/2025 4.56 4.00 - 11.00 K/uL Final RBC 06/27/2025 4.13 4.00 - 5.20 M/uL Final HGB 06/27/2025 12.6 12.0 - 16.0 g/dL Final HCT 06/27/2025 39.2 36.0 - 46.0 % Final PLT 06/27/2025 240 150 - 450 K/uL Final MCV 06/27/2025 94.9 80.0 - 100.0 fL Final MCH 06/27/2025 30.5 27.0 - 31.0 pg Final MCHC 06/27/2025 32.1 32.0 - 36.0 g/dL Final RDW 06/27/2025 12.0 11.5 - 14.5 % Final MPV 06/27/2025 9.9 8.4 - 12.0 fL Final NRBC 06/27/2025 0.00 0.00 /100 WBCs Final ABSOLUTE NRBC 06/27/2025 0.00 0.00 K/uL Final Physical Exam Vitals reviewed. Constitutional: General: She is not in acute distress. Cardiovascular: Rate and Rhythm: Normal rate. Pulses: Normal pulses. Pulmonary: Effort: Pulmonary effort is normal. Breath sounds: Normal breath sounds. Neurological: Mental Status: She is alert and oriented to person, place, and time. Psychiatric: Mood and Affect: Mood normal. Behavior: Behavior normal. 1. Essential hypertension (Primary) Assessment & Plan: BP at goal, continue medications as prescribed. Labs done recently and reviewed. DASH diet/regular exercise 2. Chronic pain of both knees Assessment & Plan: Did PT with some improvement, now working with [facility] and feels this is really helping! Is using Aleve daily, advised caution with using Aleve/Voltaren and restarting Tumeric due to risk for bleeding. Advised to use Tumeric or Voltaren not both and limit use of Aleve/use sparingly. May consider seeing ortho in the future but for now feels she is managing. Plan for AWV in six months, aware to follow-up sooner if needed 3. Elevated alkaline phosphatase level Assessment & Plan: CMP done recently and results normal Current Outpatient Medications Ordered in [facility] Medication Sig albuterol 90 mcg/actuation inhaler 2 puffs Q6H PRN clotrimazole-betamethasone (LOTRISONE) cream Apply topically 2 (two) times a day as needed. To right leg rash COLLAGEN MISC by Miscellaneous route. Powder form once daily escitalopram oxalate (LEXAPRO) 10 MG tablet TAKE 1 TABLET BY MOUTH EVERY DAY fluticasone propionate (FLONASE) 50 mcg/actuation nasal spray 1 spray by Nasal route daily. glucosamine-chondroitin 500-400 mg Cap Take 2 capsules by mouth daily. hydroCHLOROthiazide 25 MG tablet TAKE 1/2 TABLET BY MOUTH EVERY MORNING losartan (COZAAR) 25 MG tablet TAKE 1 TABLET (25 MG TOTAL) BY MOUTH DAILY. triamcinolone acetonide 0.1 % cream Apply topically 2 (two) times a day. To external ear canal Return in about 6 months (around 01/04/2026) for Medicare AWV. Arturo Duncan CNP documented in this encounter Miscellaneous Notes * Assessment & Plan Note - Arturo Duncan CNP - 07/06/2025 12:24 PM EDT Associated Problem(s): Elevated alkaline phosphatase level CMP done recently and results normal * Assessment & Plan Note - Arturo Duncan CNP - 07/06/2025 12:23 PM EDT Associated Problem(s): Chronic pain of both knees Did PT with some improvement, now working with [facility] and feels this is really helping! Is using Aleve daily, advised caution with using Aleve/Voltaren and restarting Tumeric due to risk for bleeding. Advised to use Tumeric or Voltaren not both and limit use of Aleve/use sparingly. May consider seeing ortho in the future but for now feels she is managing. Plan for AWV in six months, aware to follow-up sooner if needed * Assessment & Plan Note - Arturo Duncan CNP - 07/06/2025 12:21 PM EDT Associated Problem(s): Essential hypertension BP at goal, continue medications as prescribed. Labs done recently and reviewed. DASH diet/regular exercise documented in this encounter Plan of Treatment Upcoming Encounters Date Type Department Care Team (Late st Contact Info) Description 01/06/2026 10:30 AM EDT Office Visit [facility] Medicine [address] [place] [id number] Arturo Duncan CNP [address] [place] [address] [email or web address] documented as of this encounter Visit Diagnoses Diagnosis Essential hypertension- Primary Unspecified essential hypertension Chronic pain of both knees Elevated alkaline phosphatase level documented in this encounter Additional Health Concerns Assessment Noted Time PHQ-2 Depression Total Score: 0 07/05/20 25 12:16 PM EDT documented as of this encounter Care Teams Chrome Tanning Drum Operator Relationship Specialty Start Date End Date Arturo Duncan CNP [address] [place] [address] PCP - General Family Medicine 11/21/23 Arturo Duncan CNP [address] [place] [address] [email or web address] Insurance Assigned Provider 12/21/24 documented as of this encounter Additional Source Comments The information contained in this document represents components of the legal health record. It is not the complete legal health record.[facility]
--- NOTE | ~2025-07-07 | MM_ITS ---
EXAMINATION: MM SCREENING DIGITAL BREAST TOMOSYNTHESIS, BILATERAL CLINICAL INFORMATION: Screening. Asymptomatic. COMPARISON: Mammography: Comparison is made with available priors TECHNIQUE: Digital breast mammography with tomosynthesis is performed in both the craniocaudal and mediolateral oblique views along with computer-aided detection (CAD). FINDINGS: There are scattered areas of fibroglandular density. Left: Focal asymmetries superior breast anterior middle depth on MLO view. No suspicious calcifications or other abnormal findings. Right: Focal asymmetry retroareolar region middle depth. Focal asymmetry retroareolar region anterior depth. No suspicious calcifications or other abnormal findings. MM/MM tomosynthesis screening BI IMPRESSION: Additional imaging is recommended ASSESSMENT: BI-RADS Category 0: Incomplete - Need additional Imaging Evaluation RECOMMENDATION: 1. Additional views of the bilateral breasts. 2. Targeted ultrasound if warranted after review of the additional views. 3. Radiology department staff will contact the patient for additional imaging. Additional Imaging required Electronically signed by: Earlene Perez DO 07/07/2025 03:50 PM EDT
--- OUTSIDE RECORDS SUMMARY | 2025-07-07 07:50 | XMS_ITS | Clinical Summary ---
Author Organization [facility] Address [address] [address] Phone Care Team Providers Care Barker Peeler Name Role Phone Arturo Duncan CNP Primary Care Provider [phone] Arturo Duncan SERVICE NOW DEVELOPER Unavailable [phone] Allergies Active Allergy Reactions Criticality Noted Date Comments Oxycodone-Acetaminophen Nausea and/or Vomiting 09/12/2017 Oxycodone-Aspirin Nausea and/or Vomiting 2016 Medications glucosamine-cho ndroitin 500-400 mg Cap Take 2 capsules by mouth daily. Active COLLAGEN MISC by Miscellaneous route. Powder form once daily Active triamcinolone acetonide 0.1 % cream Apply topically 2 (two) times a day. To external ear canal 15 g 023 Active clotrimazole-be tamethasone (LOTRISONE) creamIndication s:Tinea Apply topically 2 (two) times a day as needed. To right leg rash 45 g 1 023 Active albuterol 90 mcg/actuation inhaler 2 puffs Q6H PRN 18 g 1 023 Active escitalopram oxalate (LEXAPRO) 10 MG tabletIndicatio ns:Anxiety TAKE 1 TABLET BY MOUTH EVERY DAY 90 tablet 3 025 Active hydroCHLOROthia zide 25 MG tabletIndicatio ns:Essential hypertension TAKE 1/2 TABLET BY MOUTH EVERY MORNING 45 tablet 1 025 Active fluticasone propionate (FLONASE) 50 mcg/actuation nasal spray 1 spray by Nasal route daily. 16 g 2 025 Active losartan (COZAAR) 25 MG tabletIndicatio ns:Essential hypertension TAKE 1 TABLET (25 MG TOTAL) BY MOUTH DAILY. 90 tablet 3 025 Active calcium carbonate/vitam in D3 (CALCIUM 500 + D, D3, ORAL)Indication s:daily Take 1 capsule by mouth daily. Indications: daily 2024 Discontinued(N o longer taking) turmeric root extract 500 mg Cap Take 1,000 mg by mouth 2 (two) times a day. 120 capsule 3 022 2024 Discontinued(N o longer taking) losartan (COZAAR) 25 MG tabletIndicatio ns:Essential hypertension TAKE 1 TABLET (25 MG TOTAL) BY MOUTH DAILY. 90 tablet 3 024 2024 Discontinued Active Problems Problem Noted Date Diagnosed Date Elevated alkaline phosphatase level 01/23/2025 Assessment & Plan (07/06/2025 12:24 PM EDT): CMP done recently and results normal Medicare annual wellness visit, subsequent 12/22 Assessment & Plan (12/22/2024 12:28 PM EDT): HRA form reviewed, all questions answered. UTD with optho/dentist. Immunizations and preventive care reviewed. Fasting labs done 06/2024. Exercises regularly/healthy diet. Has HCP. POLST form updated today. Plan for HTN follow-up in six months, aware to follow-up sooner if needed Osteopenia of lumbar spine 12/22/2024 Assessment & Plan (12/22/2024 12:31 PM EDT): DEXA 2020, repeat imaging ordered today and will fax to [facility] for scheduling as last done there. Stays active/healthy diet, taking calcium and Vitamin D Bilateral hand numbness 06/23/2024 Assessment & Plan (06/23/2024 12:04 PM EDT): No overt abnormalities on exam. Feels aggravated with certain activities. Encourage use of a compression brace when doing activities such as art/ipad. ROM exercises provided to patient. Can also ice after an activity such as her art class, Tylenol as needed. Is not interested in surgical intervention if indicated. Aware to follow-up if no improvement and/or worsening symptoms Tinnitus of right ear 12/01/2022 Iliotibial band syndrome of right side 0 Assessment & Plan (12/22/2024 12:27 PM EDT): Does home stretches with management Anxiety 09/12/2017 Assessment & Plan (12/22/2024 12:28 PM EDT): Doing well on current regimen of medications, continue as prescribed Assessment & Plan (12/26/2023 3:16 PM EDT): Doing well on Lexapro, continue as prescribed Chronic pain of both knees 09/12/2017 Assessment & Plan (07/06/2025 12:23 PM EDT): Did PT with some improvement, now working with [employer] and feels this is really helping! Is using Aleve daily, advised caution with using Aleve/Voltaren and restarting Tumeric due to risk for bleeding. Advised to use Tumeric or Voltaren not both and limit use of Aleve/use sparingly. May consider seeing ortho in the future but for now feels she is managing. Plan for AWV in six months, aware to follow- up sooner if needed Assessment & Plan (12/22/2024 12:30 PM EDT): More bothersome since 08/2024. Using Aleve twice a day. Advised would avoid excessive NSAID use due to HTN/risk for GI bleed. Encourage to use Tylenol Arthritis as needed. Was concerned for liver as told had cysts in the past, will check LFTs in one month to ensure remain normal. Can also use topical products such as Voltaren. Discussed option of PT and patient is agreeable, has done in the past. Is not overly interested in surgery at this time but may consider a cortisone injection in the future if needed. Will check x-ray to determine degree of degenerative changes in knee as well. Based on PT/x-ray, if no improvement will consider referral to ortho. Expresses understanding/agreeable for plan Assessment & Plan (12/26/2023 3:17 PM EDT): Occasionally uses Aleve with improvement. Is very cautious with amount due to history of mild renal insufficiency. Uses rarely Depression 09/12/2017 Essential hypertension 09/12/2017 Assessment & Plan (07/06/2025 12:21 PM EDT): BP at goal, continue medications as prescribed. Labs done recently and reviewed. DASH diet/regular exercise Assessment & Plan (12/22/2024 12:27 PM EDT): BP at goal, continue medications as prescribed. CMP ordered today and patient will do in next month. Stays very active/healthy diet Assessment & Plan (06/23/2024 12:03 PM EDT): BP at goal, continue medications as prescribed. CMP done 12/2023. Fasting labs ordered and provided to patient. Encourage DASH diet/regular exercise. Plan for AWV in six months, aware to follow-up sooner if needed Assessment & Plan (12/26/2023 3:16 PM EDT): BP at goal today. Continue with medications as prescribed. Reported a brief episode of lightheadedness during exam, occurred while sitting in the chair with a movement of her head, felt related to not drinking water today. Provided with a glass of water and felt much better. Lasted a brief second. No chest pain/shortness of breath/dizziness. Advised to follow-up if any recurring symptoms Resolved Problems Problem Noted Date Diagnosed Date Resolved Date Immunity status testing 11/18/202406/18 Grieving 07/20/2023 12/22/2024 Dizziness 01/05/2021 12/26/2023 Overweight 09/12/2017 07/06/2025 Encounters Date Type Department Care Team Description 07/06/2025 11:00 AM EDT Office Visit [facility] Medicine [address] [place] [id number] Arturo Duncan CNP Essential hypertension (Primary Dx); Chronic pain of both knees; Elevated alkaline phosphatase level 06/27/2025 8:43 AM EDT - 06/27/2025 11:59 PM EDT Hospital Encounter [facility] [address] [place] [address] Arturo Duncan CNP Discharge Disposition: Home or Self Care 06/18/2025 Refill [facility] [address] [place] [address] Arturo Duncan CNP Medication Refill from Last 3 Months Immunizations Immunization Administration Dates Next Due COVID-19 (Pre-07/09) Pfizer Vaccine, mRNA, PF 11/10/2020,10/20/2020 COVID-19 Pfizer Comirnaty Vaccine 12+ 12/11/2024 ,05/17/2024,05/17/2024 INFLUENZA, SPLIT VIRUS, TRIV ALENT W/ PRESERVATIVE IM 06/17/2015,06/17/2014,06/04/2012,06/05 Influenza High-Dose Quadriva lent Preservative Free IM 06/25/2023,06/19/2022,06/25/2020 Influenza High-Dose Trivalen t Preservative Free IM 06/23/2024,06/12/2019,07/03/2018,07/01,06/06/2016 Influenza Quadrivalent Adjuv anted Preservative Free IM 06/23/2021 Influenza Quadrivalent Prese rvative Free IM 07/03/2018,07/03/2018 Influenza Trivalent Adjuvant ed Preservative free IM 06/21/2025 Pneumococcal conjugate PCV13 08/24/2015 Pneumococcal polysaccharide PPSV23 08/27/2014 RSV Vaccine (monovalent, adjuvanted) 08/04/2024, 06/25/2023 Tdap 05/02/2019,06/09/2009 Zoster recombinant 01/26/2025,,07/03/2018,05/01 Family History Medical History Relation Comments Gastrointestinal hemorrhage Brother 1 Hypertension Brother 2 sepsis Brother 2 CV disease Father Cancer Mother CV disease Sibling 1 Cancer Sibling 1 Diabetes mellitus Sibling 1 Cardiovascular disease Son Diabetes Son Dialysis Son Relation Status Comments Brother 1 Brother 2 Daughter Alive Father Mother Sibling 1 Sibling 2 Sibling 3 Son (Age 61) Social History Tobacco Use Types Packs/Day Years [...] Orientation Straight 01/26/2022 11 :00 PM EDT Last Filed Vital Signs Vital Sign Reading Time Taken Comments Blood Pressure 120/68 07/06/2025 10:46 AM EDT Pulse 70 07/06/2025 10:46 AM EDT Temperature 36.4 C (97.5 F) 07/06/2025 10:46 AM EDT Respiratory Rate 20 06/23/2024 10:51 AM EDT Oxygen Saturation 98% 07/06/2025 10:46 AM EDT Inhaled Oxygen Concentration - - Weight 74.8 kg (165 lb) 07/06/2025 10:46 AM EDT Height 156.2 cm (5' 1.5 ) 12/22/2024 9:46 AM EDT Body Mass Index 30.67 12/22/2024 9:46 AM EDT Plan of Treatment Upcoming Encounters Date Type Department Care Team (Late st Contact Info) Description 01/06/2026 10:30 AM EDT Office Visit [facility] [address] [place] [address] Arturo Duncan, SERVICE NOW DEVELOPER [address] [place] [address] Health Maintenance Due Date Last Done Comments COVID-19 VACCINE ( season) 2025 05/25/2025, 12/11/2024, 05/17/2024, Additional history exists BLOOD PRESSURE 01/04/2026 07/06/2025 CREATININE LEVEL 06/27/2026 06/27/2025, 05/2025, 12/27/2023, Additional history exists POTASSIUM LEVEL 06/27/2026 06/27/2025, 05/0 05/2025, 07/20/2023, Additional history exists DEPRESSION SCREENING 07/05/2026 07/05/2025 FOLLOW UP BONE DENSITY TESTING 03/13/2027 03/13/2025, 05/26/2021, 08/04/2019, Additional history exists Adult Td,Tdap Booster 05/02/2029 05/02/2019, 009 PNEUMOCOCCAL VACCINES (50+ years) Completed 08/24/2015, 08/27/2014 RSV VACCINE Completed 08/04/2024, 06/25/2023 ZOSTER VACCINES Completed 01/26/2025, 10/19, 07/03/2018, Additional history exists OSTEOPOROSIS SCREENING INITIAL (ONE-TIME) Completed 03/13/2025, 05/26/2021, 08/04/2019, Additional history exists INFLUENZA VACCINE Completed 06/21/2025, , 06/25/2023, Additional history exists HEPATITIS A VACCINES Aged Out No long er eligible based on patient's age to complete this topic HIB VACCINES Aged Out No longer eligi ble based on patient's age to complete this topic MENINGOCOCCAL VACCINES (ACWY) Aged Out No longer eligible based on patient's age to complete this topic MENINGOCOCCAL VACCINES (B) Aged Out N o longer eligible based on patient's age to complete this topic Medical Devices Not on file Procedures Procedure Name Priority Date/Time Associated Diagnosis Comments CBC Routine 06/27/2025 8:48 AM EDT Essential hypertension Screening for hyperlipidemia Elevated alkaline phosphatase level COMPREHENSIVE METABOLIC PANEL Routine 06/27/2025 8:48 AM EDT Essential hypertension Screening for hyperlipidemia Elevated alkaline phosphatase level LIPID PANEL Routine 06/27/2025 8:48 AM EDT Essential hypertension Screening for hyperlipidemia Elevated alkaline phosphatase level 25-OH VITAMIN D Routine 06/27/2025 8:48 AM EDT Essential hypertension Screening for hyperlipidemia Elevated alkaline phosphatase level BD DXA SCREENING Routine 03/13/2025 3:39 PM EDT Osteopenia of lumbar spine from Last 3 Months or Most Recently Relevant to Health Maintenance Results * Comprehensive metabolic panel (06/27/2025 8:48 AM EDT) SODIUM 141 133 - 146 mmol/L [facility] POTASSIUM 4.1 3.3 - 5.1 mmol/L [facility] CHLORIDE 105 96 - 108 mmol/L [facility] CO2 27 21 - 35 mmol/L [facility] BUN 18 6 - 19 mg/dL [facility] CREATININE 0.80 0.5 - 1.5 mg/dL [facility] GLUCOSE 87 70 - 99 mg/dL [facility] ALBUMIN 4.1 3.9 - 4.8 g/dL [facility] TOTAL PROTEIN 6.9 6.5 - 8.0 g/dL [facility] CALCIUM 9.9 8.4 - 10.3 mg/dL [facility] ALKALINE PHOSPHATASE 79 39 - 117 U/L [facility] TOTAL BILIRUBIN 0.5 0.0 - 1.2 mg/dL [facility] AST 18 0 - 37 U/L [facility] ALT 13 0 - 40 U/L [facility] GLOBULIN 2.8 1 - 4.8 g/dL [facility] EGFR 74 >59 mL/min/1.7 3m2 [facility] Comment:Estimated glomerular filtration rate calculated using the CKD-EPI refit equation. ANION GAP 13 10 - 20 mmol/L [facility] Blood 06/27/2025 8:48 AM EDT 06/27/2025 9:00 AM EDT Arturo Duncan [facility] LAB BLOOD ORDERABLES Final Result Performing Organization Address City/[facility]/ZIP Co de Phone Number [address] [address] * 25-OH vitamin D (06/27/2025 8:48 AM EDT) 25 OH VIT D (TOTAL) 48 30 - 60 ng/mL [facility] Blood 06/27/2025 8:48 AM EDT 06/27/2025 9:00 AM EDT Arturo Duncan [facility] LAB BLOOD ORDERABLES Final Result Performing Organization Address City/[facility]/ZIP Co de Phone Number [address] [address] * CBC (06/27/2025 8:48 AM EDT) WBC 4.56 4.00 - 11.00 K/uL [facility] RBC 4.13 4.00 - 5.20 M/uL [facility] HGB 12.6 12.0 - 16.0 g/dL [facility] HCT 39.2 36.0 - 46.0 % [facility] PLT 240 150 - 450 K/uL [facility] MCV 94.9 80.0 - 100.0 fL [facility] MCH 30.5 27.0 - 31.0 pg [facility] MCHC 32.1 32.0 - 36.0 g/dL [facility] RDW 12.0 11.5 - 14.5 % [facility] MPV 9.9 8.4 - 12.0 fL [facility] NRBC 0.00 0.00 /100 WBCs [facility] ABSOLUTE NRBC 0.00 0.00 K/uL [facility] Blood 06/27/2025 8:48 AM EDT 06/27/2025 9:00 AM EDT Arturo Duncan CNP LAB BLOOD ORDERABLES Final Result Performing Organization Address City/[facility]/ZIP Co de Phone Number [address] [address] * (ABNORMAL) Lipid panel (06/27/2025 8:48 AM EDT) HDL 94 mg/dL [facility] Comment: Interpretation <40 mg/dL: Low HDL cholesterol (major risk factor for CHD) Greater than or equal to 60 mg/dL: High HDL cholesterol ( negative risk factor for CHD) HDL - cholesterol is affected by a number of factors, e.g. smoking, excerise, hormones, sex and age. CHOLESTEROL 228 0 - 240 mg/dL [facility] TRIGLYCERIDES 56 30 - 160 mg/dL [facility] LDL 123 50 - 129 mg/dL [facility] Comment: LDL levels in terms of risk for coronary heart disease: <100 mg/dL: Optimal 100-129 mg/dL: Near or above optimal 130-159 mg/dL: Borderline high 160-189 mg/dL: High >190 mg/dL: Very High CARDIAC RISK RATIO 2.4(L) 3.3 - 4.4 C [facility] Blood 06/27/2025 8:48 AM EDT 06/27/2025 9:00 AM EDT Arturo Duncan CNP LAB BLOOD ORDERABLES Final Result Performing Organization Address City/[facility]/ZIP Co de Phone Number [address] [address] * DXA Screening (03/13/2025 3:39 PM EDT) Anatomical Region Laterality Modality Bone Density Bone Density Arturo Duncan CNP IMG BD BONE DENSITY DEXA F inal Result from Last 3 Months or Most Recently Relevant to Health Maintenance Insurance MEDICARE PART A & B [employer] [place] [id number] MEDICARE PART A & B [employer] SUPPLEMENT MEDICARE PART A & B [facility] MEDICARE SUPPLEMENT MEDICARE PART A & B Member Subscriber Plan / Payer (Ef fective 2007-Present) Name:Marilyn White Member ID:[id number] Relation to Subscriber:Self Name:Marilyn White Subscriber ID:[id number] Payer ID:[id number] Group ID:Not on file Type:Medicare Address: [employer] [address] [facility] MEDICARE SUPPLEMENT MEDICARE PART A & B Member Subscriber Plan / Payer ( fective 2007-) Name:WhiteJerica emerylyn Member ID:[id number] Relation to Subscriber:Self Name:Marilyn White Subscriber ID:[id number] Payer ID:[id number] Group ID:Not on file Type:Medicare Address: [employer] [address] [facility] MEDICARE SUPPLEMENT MEDICARE PART A & [place] [address] MEDICARE PART A & [facility] MEDICARE SUPPLEMENT MEDICARE PART A & B [employer] MEDIC[employer] SUPPLEMENT MEDICARE PART A & B [employer] [place] [phone] Advance Directives For more information, please contact: [phone] (9AM - 5PM [facility], Sunday-Sunday) Documents on File Type Date Recorded Patient Accounts Receivable Processor Expl anation MOLST 11/15/2021 MOLST * DNR OK to Intubate (Latest Code Status on File) Date Activated Date Inactivated Comments 11/15/2021 10:26 AM Question Answer Comments Code Status Confirmed With: Patient Code Status Communicated To: PCP Care Teams Barker Peeler Relationship Specialty Start Date End Date Arturo Duncan CNP [address] [place] [address] [email or web address] PCP - General Family Medicine 11/21/23 Arturo Duncan CNP [address] [place] [address] [email or web address] Insurance Assigned Provider 12/21/24 Additional Source Comments The information contained in this document represents components of the legal health record. It is not the complete legal health record.[facility]
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
== END 2025-07-07 07:46 | disposition home or self-care (01) ==
LOC: HO.MAMMO 07:45
PROVIDERS: PCP Registered Nurse; Visit Provider Registered Nurse
DX: Z12.31 Encounter for screening mammogram for malignant neoplasm of breast (principal)
CPT/HCPCS: 77063; 77067

== ENCOUNTER → 2025-07-07 08:15 | Outpatient (BNV) | payer MEDICARE, OTHER, SELFPAY | PROVIDERS: PCP Registered Nurse; Visit Provider Internal Medicine | DX: Z12.31 Encounter for screening mammogram for malignant neoplasm of breast (principal) | CPT/HCPCS: 77063; 77067 ==

== ENCOUNTER 2025-08-24 13:08 | Outpatient (REF) | payer MEDICARE, OTHER, SELFPAY ==
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
== END 2025-08-24 13:09 | disposition home or self-care (01) ==
LOC: HO.MAMMO 13:08
DX: N64.89 Other specified disorders of breast (principal); R92.30 Dense breasts, unspecified
CPT/HCPCS: 76642; 77062; 77066

== ENCOUNTER → 2025-08-24 13:20 | Outpatient (BNV) | payer MEDICARE, OTHER, SELFPAY | PROVIDERS: Visit Provider Radiology Body Imaging | DX: R92.8 Other abnormal and inconclusive findings on diagnostic imaging of breast (principal) | CPT/HCPCS: 76642; 77066; G0279 ==